=== PATIENT | male | born 1945 | race Caucasian/White ===

== ENCOUNTER 2020-01-01 14:09 | Inpatient (IN) ==
[2020-01-01] MEDS ORDERED: PIPERACILLIN/TAZOBACTAM 3,375 MG in SODIUM CHLORIDE 0.9% 100 ML IV STA (14:51)
[2020-01-01] MEDS ORDERED: VANCOMYCIN INJ 750 MG in SODIUM CHLORIDE 0.9% 250 ML IV STA (14:51)
[2020-01-01 16:27] LABS: Basophils # 0.1 10*3/uL (0.0-0.2); Basophils % 0.3 % (0.0-0.8); Eosinophils # 0.2 10*3/uL (0.0-0.87); Eosinophils % 0.7 % (0.00-10.9); Hematocrit 26.3 VOL% (42.0-52.0); Immature Granulocytes Absolute 0.21 #; Lymphocytes # 1.4 10*3/uL (1.4-4.0); Lymphocytes % 6.5 % (21.2-54.2); Mean Corpuscular HGB Conc 30.4 GM/DL (32-36); Mean Corpuscular Volume 99.2 FL (87-102); Mean Platelet Volume 8.6 FL (9.6-12.0); Monocytes % 6.3 % (1.7-12.7); Neutrophils % 85.2 % (38.7-73.9); Platelet Count 693 T/CUMM (130-400); Red Blood Count 2.65 MC/CUMM (3.8-5.5); Red Cell Distribution Width 13.1 % (9.3-17.3); White Blood Count 21.7 T/CUMM (4-12)
[2020-01-01 16:45] LABS: INR 1.1; PT Patient Result 11.9 SECS (9.8-11.9); Partial Thromboplastin Time 32.1 SECS (23.9-33.8)
[2020-01-01 16:55] LABS: Lymphocytes 10 % (20-55); Segmented Neutrophils 86 % (50-85); Total Cells Counted 100
[2020-01-01 16:56] LABS: Alanine Aminotransferase 9 U/L (16-61); Albumin 1.4 G/DL (3.4-5.0); Alkaline Phosphatase 143 U/L (45-117); Aspartate Amino Transferase 55 U/L (0-37); Bilirubin,Total < 0.39 MG/DL (0.2-1.0); Blood Urea Nitrogen 14 MG/DL (7-18); Estimated Glom Filtration Rate 79 ML/MIN; Ferritin 1471.8 ng/ml (26-388); Glucose 109 MG/DL (74-106); Osmolality,Calculated 261.8 MOS/KG (273-304); Platelet Estimate Adequate; Total Protein 6.6 G/DL (6.4-8.3); Troponin I 0.015 NG/ML (0.00-0.045)
[2020-01-01] MEDS ORDERED: DEXTROSE 10% 250 ML BAG IV PRN (18:41)
[2020-01-01] MEDS ORDERED: GLUCAGON 1 MG VIAL IM PRN (18:41)
[2020-01-01] MEDS ORDERED: ONDANSETRON 4 MG/2 ML VIAL IV PRN (18:50)
[2020-01-01] MEDS ORDERED: ACETAMINOPHEN 325 MG TABLET PO PRN (18:50)
[2020-01-01 19:25] LABS: Apearance,Urine CLEAR (Clear); Bilirubin,Urine Negative (Negative); Blood, Urine Moderate mg/dL (Negative); Glucose,Urine (UA) Negative (Negative); Ketones,Urine Negative (Negative); Mucus,Urine Occasional /LPF (Occasional); Nitrite,Urine Negative (Negative); Protein,Urine Negative; RBC,Urine 3 /HPF (0-4); Urine Color Straw (Yellow); Urine Urobilinogen < 2.0 EU/DL (0.2-1.0); WBC,Urine 1 /HPF (0-6)
[2020-01-01] MEDS: SODIUM CHLORIDE 0.9% 1,000 ML IV SCH (22:01)
[2020-01-02] MEDS: PIPERACILLIN/TAZOBACTAM 3,375 MG in SODIUM CHLORIDE 0.9% 100 ML IV SCH ×3 (00:50→18:00)
[2020-01-02] MEDS: VANCOMYCIN INJ 750 MG in SODIUM CHLORIDE 0.9% 250 ML IV SCH ×2 (05:51→21:38)
[2020-01-02 07:17] LABS: Basophils # 0.1 10*3/uL (0.0-0.2); Basophils % 0.4 % (0.0-0.8); Eosinophils # 0.4 10*3/uL (0.0-0.87); Eosinophils % 2.2 % (0.00-10.9); Hematocrit 22.6 VOL% (42.0-52.0); Hemoglobin 7.2 GM/DL (14.0-18.0); Immature Granulocytes % 1.1 %; Immature Granulocytes Absolute 0.18 #; Mean Corpuscular HGB Conc 31.9 GM/DL (32-36); Mean Corpuscular Volume 96.2 FL (87-102); Mean Platelet Volume 8.7 FL (9.6-12.0); Monocytes % 6.7 % (1.7-12.7); Neutrophils % 77.6 % (38.7-73.9); Platelet Count 612 T/CUMM (130-400); Red Blood Count 2.35 MC/CUMM (3.8-5.5); Red Cell Distribution Width 13.1 % (9.3-17.3); White Blood Count 16.9 T/CUMM (4-12)
[2020-01-02 07:35] LABS: Albumin 1.2 G/DL (3.4-5.0); Bilirubin,Total 0.6 MG/DL (0.2-1.0); Calcium 7.7 MG/DL (8.5-10.1); Osmolality,Calculated 261.5 MOS/KG (273-304); Total Protein 5.5 G/DL (6.4-8.3)
[2020-01-02 08:20] LABS: % Iron Saturation 13.7 % (18-50)
[2020-01-02] MEDS: PANTOPRAZOLE 40 MG TABLET PO SCH (09:34)
[2020-01-02] MEDS: IRON SUCROSE 200 MG in SODIUM CHLORIDE 0.9% 100 ML IV SCH (12:50)
[2020-01-02] MEDS: CARBIDOPA/LEVODOPA 25-100 MG TABLET PO SCH ×2 (14:59→21:38)
[2020-01-02] MEDS ORDERED: FERROUS SULFATE 325 MG TABLET PO SCH ×2 (15:00→21:00)
[2020-01-02] MEDS: SODIUM CHLORIDE 0.9% 1,000 ML IV SCH (19:43)
[2020-01-02] MEDS: risperiDONE 0.25 MG TABLET PO SCH (21:38)
[2020-01-02] MEDS: DOCUSATE SODIUM 100 MG CAPSULE PO SCH (21:38)
[2020-01-03] MEDS: PIPERACILLIN/TAZOBACTAM 3,375 MG in SODIUM CHLORIDE 0.9% 100 ML IV SCH ×3 (01:49→17:10)
[2020-01-03] MEDS: SODIUM CHLORIDE 0.9% 1,000 ML IV SCH ×3 (01:49→14:19)
[2020-01-03 07:00] LABS: Calcium 7.5 MG/DL (8.5-10.1); Osmolality,Calculated 263.4 MOS/KG (273-304)
[2020-01-03 07:03] LABS: Basophils # 0.1 10*3/uL (0.0-0.2); Basophils % 0.3 % (0.0-0.8); Eosinophils # 0.5 10*3/uL (0.0-0.87); Eosinophils % 2.8 % (0.00-10.9); Hematocrit 23.1 VOL% (42.0-52.0); Hemoglobin 7.2 GM/DL (14.0-18.0); Immature Granulocytes % 1.1 %; Immature Granulocytes Absolute 0.18 #; Lymphocytes # 1.8 10*3/uL (1.4-4.0); Lymphocytes % 11.1 % (21.2-54.2); Mean Corpuscular HGB Conc 31.2 GM/DL (32-36); Mean Corpuscular Volume 97.1 FL (87-102); Mean Platelet Volume 8.8 FL (9.6-12.0); Monocytes % 6.8 % (1.7-12.7); Neutrophils % 77.9 % (38.7-73.9); Platelet Count 622 T/CUMM (130-400); Red Blood Count 2.38 MC/CUMM (3.8-5.5); Red Cell Distribution Width 13.1 % (9.3-17.3); White Blood Count 16.6 T/CUMM (4-12)
[2020-01-03] MEDS: risperiDONE 0.25 MG TABLET PO SCH ×2 (09:13→21:59)
[2020-01-03] MEDS: MULTIVITAMIN (CENTRUM) TABLET PO SCH (09:13)
[2020-01-03] MEDS: CARBIDOPA/LEVODOPA 25-100 MG TABLET PO SCH ×3 (09:13→21:59)
[2020-01-03] MEDS: DOCUSATE SODIUM 100 MG CAPSULE PO SCH ×2 (09:13→21:59)
[2020-01-03] MEDS: ASPIRIN CHEW 81 MG TABLET PO SCH (09:13)
[2020-01-03] MEDS: CITALOPRAM 20 MG TABLET PO SCH (09:14)
[2020-01-03] MEDS: predniSONE 5 MG TABLET PO SCH (09:14)
[2020-01-03] MEDS: PANTOPRAZOLE 40 MG TABLET PO SCH (09:14)
[2020-01-03] MEDS: IRON SUCROSE 200 MG in SODIUM CHLORIDE 0.9% 100 ML IV SCH (14:19)
[2020-01-03] MEDS: VANCOMYCIN INJ 750 MG in SODIUM CHLORIDE 0.9% 250 ML IV SCH ×2 (16:29→22:00)
[2020-01-04] MEDS: PIPERACILLIN/TAZOBACTAM 3,375 MG in SODIUM CHLORIDE 0.9% 100 ML IV SCH ×3 (00:36→18:36)
[2020-01-04 05:54] LABS: Basophils # 0.1 10*3/uL (0.0-0.2); Basophils % 0.3 % (0.0-0.8); Eosinophils # 0.5 10*3/uL (0.0-0.87); Eosinophils % 2.4 % (0.00-10.9); Hemoglobin 7.2 GM/DL (14.0-18.0); Immature Granulocytes % 1.3 %; Immature Granulocytes Absolute 0.25 #; Lymphocytes # 1.9 10*3/uL (1.4-4.0); Lymphocytes % 9.4 % (21.2-54.2); Mean Corpuscular HGB Conc 31.3 GM/DL (32-36); Mean Platelet Volume 8.9 FL (9.6-12.0); Monocytes % 6.1 % (1.7-12.7); Neutrophils % 80.5 % (38.7-73.9); Platelet Count 611 T/CUMM (130-400); Red Blood Count 2.37 MC/CUMM (3.8-5.5); Red Cell Distribution Width 13.1 % (9.3-17.3); White Blood Count 19.9 T/CUMM (4-12)
[2020-01-04 06:05] LABS: Calcium 7.5 MG/DL (8.5-10.1); Osmolality,Calculated 269.1 MOS/KG (273-304)
[2020-01-04] MEDS: SODIUM CHLORIDE 0.9% 1,000 ML IV SCH (06:25)
[2020-01-04] MEDS: CARBIDOPA/LEVODOPA 25-100 MG TABLET PO SCH ×3 (08:43→21:39)
[2020-01-04] MEDS: risperiDONE 0.25 MG TABLET PO SCH ×2 (09:00→21:38)
[2020-01-04] MEDS: IRON SUCROSE 200 MG in SODIUM CHLORIDE 0.9% 100 ML IV SCH (09:02)
[2020-01-04] MEDS: VANCOMYCIN INJ 750 MG in SODIUM CHLORIDE 0.9% 250 ML IV SCH ×2 (10:02→23:57)
[2020-01-04] MEDS: MULTIVITAMIN (CENTRUM) TABLET PO SCH (14:17)
[2020-01-04] MEDS: CITALOPRAM 20 MG TABLET PO SCH (14:18)
[2020-01-04] MEDS: ASPIRIN CHEW 81 MG TABLET PO SCH (14:18)
[2020-01-04] MEDS: PANTOPRAZOLE 40 MG TABLET PO SCH (14:18)
[2020-01-04] MEDS: predniSONE 5 MG TABLET PO SCH (14:18)
[2020-01-04] MEDS: DOCUSATE SODIUM 100 MG CAPSULE PO SCH ×2 (14:19→21:38)
[2020-01-05] MEDS: PIPERACILLIN/TAZOBACTAM 3,375 MG in SODIUM CHLORIDE 0.9% 100 ML IV SCH ×3 (03:20→20:01)
[2020-01-05] MEDS: SODIUM CHLORIDE 0.9% 1,000 ML IV SCH (03:30)
[2020-01-05 08:52] LABS: Basophils # 0.1 10*3/uL (0.0-0.2); Basophils % 0.3 % (0.0-0.8); Eosinophils # 0.7 10*3/uL (0.0-0.87); Eosinophils % 4.6 % (0.00-10.9); Hematocrit 23.2 VOL% (42.0-52.0); Immature Granulocytes % 1.1 %; Immature Granulocytes Absolute 0.17 #; Lymphocytes # 2.1 10*3/uL (1.4-4.0); Lymphocytes % 14.4 % (21.2-54.2); Mean Corpuscular HGB Conc 30.2 GM/DL (32-36); Mean Corpuscular Volume 100.4 FL (87-102); Mean Platelet Volume 8.8 FL (9.6-12.0); Monocytes % 6.3 % (1.7-12.7); Neutrophils % 73.3 % (38.7-73.9); Platelet Count 528 T/CUMM (130-400); Red Blood Count 2.31 MC/CUMM (3.8-5.5); Red Cell Distribution Width 13.2 % (9.3-17.3); White Blood Count 14.8 T/CUMM (4-12)
[2020-01-05] MEDS ORDERED: ENOXAPARIN 30 MG/0.3 ML SYRINGE SUBCUT SCH (09:00)
[2020-01-05 09:11] LABS: Alanine Aminotransferase < 6 U/L (16-61); Albumin 1.1 G/DL (3.4-5.0); Alkaline Phosphatase 85 U/L (45-117); Aspartate Amino Transferase 21 U/L (0-37); Bilirubin,Total < 0.39 MG/DL (0.2-1.0); Blood Urea Nitrogen 12 MG/DL (7-18); Calcium 7.5 MG/DL (8.5-10.1); Estimated Glom Filtration Rate 75 ML/MIN; Glucose 75 MG/DL (74-106); Osmolality,Calculated 271.8 MOS/KG (273-304); Total Protein 5.2 G/DL (6.4-8.3)
[2020-01-05] MEDS: IRON SUCROSE 200 MG in SODIUM CHLORIDE 0.9% 100 ML IV SCH (09:23)
[2020-01-05] MEDS: predniSONE 5 MG TABLET PO SCH (09:31)
[2020-01-05] MEDS: CARBIDOPA/LEVODOPA 25-100 MG TABLET PO SCH ×3 (09:31→20:01)
[2020-01-05] MEDS: DOCUSATE SODIUM 100 MG CAPSULE PO SCH ×2 (09:31→20:01)
[2020-01-05] MEDS: CITALOPRAM 20 MG TABLET PO SCH (09:32)
[2020-01-05] MEDS: ASPIRIN CHEW 81 MG TABLET PO SCH (09:32)
[2020-01-05] MEDS: PANTOPRAZOLE 40 MG TABLET PO SCH (09:32)
[2020-01-05] MEDS: MULTIVITAMIN (CENTRUM) TABLET PO SCH (09:32)
[2020-01-05] MEDS: risperiDONE 0.25 MG TABLET PO SCH ×2 (09:32→20:01)
[2020-01-05] MEDS: VANCOMYCIN INJ 750 MG in SODIUM CHLORIDE 0.9% 250 ML IV SCH (11:57)
[2020-01-05] MEDS: VANCOMYCIN INJ 1,000 MG in SODIUM CHLORIDE 0.9% 250 ML IV SCH (23:56)
[2020-01-06] MEDS: PIPERACILLIN/TAZOBACTAM 3,375 MG in SODIUM CHLORIDE 0.9% 100 ML IV SCH ×3 (04:44→22:38)
[2020-01-06 06:39] LABS: Basophils # 0.1 10*3/uL (0.0-0.2); Basophils % 0.4 % (0.0-0.8); Eosinophils # 0.7 10*3/uL (0.0-0.87); Hematocrit 22.3 VOL% (42.0-52.0); Hemoglobin 6.8 GM/DL (14.0-18.0); Immature Granulocytes % 1.4 %; Lymphocytes # 2.3 10*3/uL (1.4-4.0); Lymphocytes % 16.4 % (21.2-54.2); Mean Corpuscular HGB Conc 30.5 GM/DL (32-36); Mean Corpuscular Volume 100.5 FL (87-102); Mean Platelet Volume 9.2 FL (9.6-12.0); Monocytes % 6.2 % (1.7-12.7); Neutrophils % 70.6 % (38.7-73.9); Platelet Count 570 T/CUMM (130-400); Red Blood Count 2.22 MC/CUMM (3.8-5.5); Red Cell Distribution Width 13.3 % (9.3-17.3); White Blood Count 13.8 T/CUMM (4-12)
[2020-01-06] MEDS: CARBIDOPA/LEVODOPA 25-100 MG TABLET PO SCH ×3 (09:46→21:40)
[2020-01-06] MEDS: MULTIVITAMIN (CENTRUM) TABLET PO SCH (09:46)
[2020-01-06] MEDS: CITALOPRAM 20 MG TABLET PO SCH (09:46)
[2020-01-06] MEDS: ASPIRIN CHEW 81 MG TABLET PO SCH (09:46)
[2020-01-06] MEDS: PANTOPRAZOLE 40 MG TABLET PO SCH (09:47)
[2020-01-06] MEDS: predniSONE 5 MG TABLET PO SCH (09:47)
[2020-01-06] MEDS: risperiDONE 0.25 MG TABLET PO SCH ×2 (09:47→21:41)
[2020-01-06] MEDS: DOCUSATE SODIUM 100 MG CAPSULE PO SCH ×2 (09:47→21:40)
[2020-01-06] MEDS ORDERED: SODIUM CHLORIDE 0.9% 1,000 ML IV PRN (12:25)
[2020-01-06] MEDS: VANCOMYCIN INJ 1,000 MG in SODIUM CHLORIDE 0.9% 250 ML IV SCH (12:56)
[2020-01-06 17:42] LABS: Calcium 7.9 MG/DL (8.5-10.1); Osmolality,Calculated 271.7 MOS/KG (273-304)
[2020-01-06 23:35] LABS: Hematocrit 27.6 VOL% (42.0-52.0); Hemoglobin 8.2 GM/DL (14.0-18.0)
[2020-01-07] MEDS: SODIUM CHLORIDE 0.9% 1,000 ML IV SCH ×4 (00:11→22:05)
[2020-01-07] MEDS: VANCOMYCIN INJ 1,000 MG in SODIUM CHLORIDE 0.9% 250 ML IV SCH ×3 (01:54→13:14)
[2020-01-07 06:11] LABS: Basophils # 0.1 10*3/uL (0.0-0.2); Basophils % 0.4 % (0.0-0.8); Eosinophils % 7.1 % (0.00-10.9); Hematocrit 25.8 VOL% (42.0-52.0); Hemoglobin 8.3 GM/DL (14.0-18.0); Immature Granulocytes % 1.6 %; Immature Granulocytes Absolute 0.22 #; Lymphocytes # 2.5 10*3/uL (1.4-4.0); Lymphocytes % 18.3 % (21.2-54.2); Mean Corpuscular HGB Conc 32.2 GM/DL (32-36); Mean Corpuscular Volume 95.9 FL (87-102); Mean Platelet Volume 9.1 FL (9.6-12.0); Monocytes % 6.3 % (1.7-12.7); Neutrophils % 66.3 % (38.7-73.9); Platelet Count 532 T/CUMM (130-400); Red Blood Count 2.69 MC/CUMM (3.8-5.5); Red Cell Distribution Width 13.7 % (9.3-17.3); White Blood Count 13.6 T/CUMM (4-12)
[2020-01-07] MEDS: PIPERACILLIN/TAZOBACTAM 3,375 MG in SODIUM CHLORIDE 0.9% 100 ML IV SCH ×3 (06:22→22:06)
[2020-01-07 06:31] LABS: Calcium 7.6 MG/DL (8.5-10.1); Osmolality,Calculated 269.8 MOS/KG (273-304)
[2020-01-07] MEDS: risperiDONE 0.25 MG TABLET PO SCH ×2 (09:05→22:06)
[2020-01-07] MEDS: PANTOPRAZOLE 40 MG TABLET PO SCH (09:05)
[2020-01-07] MEDS: predniSONE 5 MG TABLET PO SCH (09:05)
[2020-01-07] MEDS: ASPIRIN CHEW 81 MG TABLET PO SCH (09:05)
[2020-01-07] MEDS: DOCUSATE SODIUM 100 MG CAPSULE PO SCH ×2 (09:05→22:07)
[2020-01-07] MEDS: CITALOPRAM 20 MG TABLET PO SCH (09:05)
[2020-01-07] MEDS: MULTIVITAMIN (CENTRUM) TABLET PO SCH (09:05)
[2020-01-07] MEDS: CARBIDOPA/LEVODOPA 25-100 MG TABLET PO SCH ×3 (09:06→22:06)
[2020-01-08] MEDS: VANCOMYCIN INJ 1,000 MG in SODIUM CHLORIDE 0.9% 250 ML IV SCH ×2 (02:21→17:45)
[2020-01-08 06:49] LABS: Basophils # 0.1 10*3/uL (0.0-0.2); Basophils % 0.4 % (0.0-0.8); Eosinophils # 0.8 10*3/uL (0.0-0.87); Eosinophils % 6.5 % (0.00-10.9); Hematocrit 26.1 VOL% (42.0-52.0); Hemoglobin 8.2 GM/DL (14.0-18.0); Immature Granulocytes % 1.2 %; Immature Granulocytes Absolute 0.15 #; Lymphocytes # 1.9 10*3/uL (1.4-4.0); Lymphocytes % 15.5 % (21.2-54.2); Mean Corpuscular HGB Conc 31.4 GM/DL (32-36); Mean Corpuscular Volume 97.4 FL (87-102); Mean Platelet Volume 9.1 FL (9.6-12.0); Monocytes % 5.9 % (1.7-12.7); Neutrophils % 70.5 % (38.7-73.9); Platelet Count 504 T/CUMM (130-400); Red Blood Count 2.68 MC/CUMM (3.8-5.5); Red Cell Distribution Width 13.7 % (9.3-17.3); White Blood Count 12.4 T/CUMM (4-12)
[2020-01-08 07:06] LABS: Calcium 7.4 MG/DL (8.5-10.1); Osmolality,Calculated 272.7 MOS/KG (273-304)
[2020-01-08] MEDS: PIPERACILLIN/TAZOBACTAM 3,375 MG in SODIUM CHLORIDE 0.9% 100 ML IV SCH ×3 (07:10→21:56)
[2020-01-08] MEDS: DOCUSATE SODIUM 100 MG CAPSULE PO SCH ×2 (09:17→21:56)
[2020-01-08] MEDS: CITALOPRAM 20 MG TABLET PO SCH (09:17)
[2020-01-08] MEDS: PANTOPRAZOLE 40 MG TABLET PO SCH (09:17)
[2020-01-08] MEDS: MULTIVITAMIN (CENTRUM) TABLET PO SCH (09:17)
[2020-01-08] MEDS: ASPIRIN CHEW 81 MG TABLET PO SCH (09:17)
[2020-01-08] MEDS: predniSONE 5 MG TABLET PO SCH (09:18)
[2020-01-08] MEDS: risperiDONE 0.25 MG TABLET PO SCH ×2 (09:18→21:56)
[2020-01-08] MEDS: CARBIDOPA/LEVODOPA 25-100 MG TABLET PO SCH ×3 (09:18→21:56)
[2020-01-08] MEDS: SODIUM CHLORIDE 0.9% 1,000 ML IV SCH (16:46)
[2020-01-09] MEDS: PIPERACILLIN/TAZOBACTAM 3,375 MG in SODIUM CHLORIDE 0.9% 100 ML IV SCH (05:33)
[2020-01-09] MEDS: CARBIDOPA/LEVODOPA 25-100 MG TABLET PO SCH ×2 (08:44→14:34)
[2020-01-09] MEDS: PANTOPRAZOLE 40 MG TABLET PO SCH (08:45)
[2020-01-09] MEDS: ASPIRIN CHEW 81 MG TABLET PO SCH (08:45)
[2020-01-09] MEDS: predniSONE 5 MG TABLET PO SCH (08:45)
[2020-01-09] MEDS: risperiDONE 0.25 MG TABLET PO SCH (08:45)
[2020-01-09] MEDS: DOCUSATE SODIUM 100 MG CAPSULE PO SCH (08:45)
[2020-01-09] MEDS: MULTIVITAMIN (CENTRUM) TABLET PO SCH (08:45)
[2020-01-09] MEDS: CITALOPRAM 20 MG TABLET PO SCH (08:45)
[2020-01-09 12:05] LABS: Basophils # 0.1 10*3/uL (0.0-0.2); Basophils % 0.5 % (0.0-0.8); Eosinophils # 0.5 10*3/uL (0.0-0.87); Eosinophils % 3.2 % (0.00-10.9); Hematocrit 29.7 VOL% (42.0-52.0); Hemoglobin 9.1 GM/DL (14.0-18.0); Immature Granulocytes % 0.9 %; Immature Granulocytes Absolute 0.13 #; Lymphocytes # 1.4 10*3/uL (1.4-4.0); Mean Corpuscular HGB Conc 30.6 GM/DL (32-36); Mean Corpuscular Volume 98.7 FL (87-102); Mean Platelet Volume 8.8 FL (9.6-12.0); Monocytes % 4.8 % (1.7-12.7); Neutrophils % 80.6 % (38.7-73.9); Platelet Count 473 T/CUMM (130-400); Red Blood Count 3.01 MC/CUMM (3.8-5.5); Red Cell Distribution Width 13.6 % (9.3-17.3); White Blood Count 14.1 T/CUMM (4-12)
[2020-01-09] MEDS ORDERED: VANCOMYCIN INJ 1,000 MG in SODIUM CHLORIDE 0.9% 250 ML IV SCH (13:00)
[2020-01-09] MEDS: SODIUM CHLORIDE 0.9% 1,000 ML IV SCH (14:31)
[2020-01-09 15:41] VITALS: BP 119/57
== END 2020-01-09 17:45 | disposition home or self-care (01) | DRG 177 ==
LOC: N.ED 14:09 → N.EDINP 19:50 → SUATTDRO 19:50 → N.3E 20:20
PROVIDERS: ADMIT Internal Medicine; ATTEND Internal Medicine